=== PATIENT | female | born 1940 | race Caucasian/White ===

== ENCOUNTER 2017-01-24 10:03 | Emergency (ER) | payer MEDICARE ==
[~2017-01-24] VITALS: Ht 162.6 cm; Wt 76.2 kg
[2017-01-24] MEDS ORDERED: SODIUM CHLORIDE FLUSH 10ML SYR IVF ONE (11:00)
[2017-01-24 11:16] LABS: HEMATOCRIT 42.3 % (34.6-47.8); HEMOGLOBIN 14.4 g/dL (11.7-16.4); WHITE BLOOD COUNT 7.7 x10^3/uL (3.4-10)
[2017-01-24 11:29] LABS: BLOOD UREA NITROGEN 13 mg/dL (7-18)
[2017-01-24 11:34] LABS: IS PT STATUS REG ER OR PRE ER? YES
[2017-01-24 12:15] VITALS: BP 134/71
== END 2017-01-24 12:21 | disposition home or self-care (01) ==
LOC: ED 11:15
DX: R55 Syncope and collapse (principal); R11.0 Nausea
CPT/HCPCS: 36415; 71010; 80048; 82040; 83880; 84484; 85025; 93005; 99285